=== PATIENT | female | born 1965 | race African-American/Black ===

== ENCOUNTER 2016-11-07 16:51 | Emergency (ER) | payer OTHER ==
[~2016-11-07] VITALS: Ht 170.2 cm; Wt 59.9 kg
[~2016-11-07 16:51] MED LIST: CLARITIN10 M2 ORAL; NEURONTIN400 MG ORAL
[2016-11-07 17:53] VITALS: BP 148/79
[2016-11-07] MEDS ORDERED: LORazepam 0.5mg tab ORAL ONE (18:15)
[2016-11-07] MEDS ORDERED: ATIVAN1 MG ORAL (19:16)
[2016-11-07 19:21] VITALS: BP 148/79
--- NOTE | 2016-11-07 22:29 | Emergency Room Report ---
History of Present Illness General Chief Complaint: Upper Respiratory Illness Source: Patient Present Illness HPI The pt is a 51 yo F with a Hx of anxiety disorder presenting for cough and mid chest pain. The pt states she developed a dry cough three days prior and then felt mid chest pain yesterday which occurs with cough. The patient denies any cardiac history. The pain is described as an 8/10 dull ache and only occurs with cough. The patient denies any radiating pain and denies SOB, N, V, F, chills Allergies: Coded Allergies: No Known Allergies (Unverified , 10/22/16) Patient History Past Medical History: see triage record Pertinent Family History: none Reviewed Nursing Documentation: PMH: Agreed, PSxH: Agreed Nursing Documentation-PMH Past Medical History: No History, Except For History Of Psychiatric Problem: Yes - anxiety Review of Systems All Other Systems: negative except mentioned in HPI Physical Exam Vital Signs Date Time Temp Pulse Resp B/P Pulse Ox O2 Delivery O2 Flow Rate FiO2 11/07/16 17:10 98.8 93 19 148/79 99 Room Air Sp02 EP Interpretation: reviewed, normal General Appearance: no apparent distress, alert, GCS 15, non-toxic Head: normocephalic, atraumatic Eyes: bilateral eye PERRL, bilateral eye normal inspection ENT: hearing grossly normal, normal pharynx, no angioedema, normal voice, TMs + canals normal, uvula midline, moist mucus membranes Neck: full range of motion, supple/symm/no masses Respiratory: chest non-tender, lungs clear, normal breath sounds, speaking full sentences Cardiovascular #1: regular rate, rhythm, no edema Gastrointestinal: normal bowel sounds, non tender, soft, non-distended, no guarding, no rebound Genitourinary: normal inspection, no CVA tenderness Musculoskeletal: back normal, gait/station normal, normal range of motion, non- tender Neurologic: alert, oriented x3, responsive, motor strength/tone normal, sensory intact, speech normal Psychiatric: memory normal, no suicidal/homicidal ideation, anxious Skin: normal color, no rash, warm/dry, well hydrated Medical Decision Making PA Attestation Dr. Medina is my supervising physician. Patient management was discussed with my supervising physician Diagnostic Impression: Primary Impression: Anxiety ER Course The pt is a 51 yo F with a Hx of anxiety disorder presenting for cough and mid chest pain. Differential diagnosis include but not limited to anxiety disorder, depression, pharyngitis, bronchitis, sinusitis, pneumonia, rhinitis PE: Pt appears anxious and begins to cry during exam. A&Ox3 PERRL. EOMI. RRR. No MRG Lungs CTA bilat Abdomen: Normal appearance. Non distended. No ecchymosis. Normal BS. Non TTP. No McBurney point tenderness. No guarding. Skin is warm and dry, no rashes. CXR unremarkable. Pt given tylenol for pain and ativan for anxiety. The pt will be DC'ed home. No signs of infection. Pt will be treated for anxiety and will FU with PMD/Psychiatrist. ER precautions. Chest X-Ray Diagnostic Results EP Interpretation: Yes Findings: no consolidation, no effusion, no pneumothorax Number of Views: 1 PA Scribe Text I am acting as scribe for my supervising physician. My supervising physician's interpretation of the chest xrays are there is no consolidation, no effusion, no acute cardiopulmonary disease, no pneumothorax Last Vital Signs Date Time Temp Pulse Resp B/P Pulse Ox O2 Delivery O2 Flow Rate FiO2 11/07/16 19:21 98.8 11/07/16 19:21 96 19 148/79 99 Room Air Status: improved Disposition: HOME, SELF-CARE Condition: Improved Scripts Lorazepam* (ATIVAN*) 1 Mg Tablet 1 MG ORAL DAILY, #10 TAB Prov: DEBRA FIGUEREDO 11/07/16 Patient Instructions: Panic Attacks Additional Instructions: I discussed my findings with the patient. All questions and concerns have been answered. Treatment and medication compliance have been addressed. I advised the patient that they need to follow up with PMD in 3-5 days. Return to ED if symptoms worsen, new symptoms arise, or if needed for any reason. Patient verbalized understanding of discharge instructions. The patient is advised to see primary care physician/psychiatrist DEBRA FIGUEREDO Nov 07, 2016 22:29
--- NOTE | 2016-11-13 10:30 | Diagnostic Imaging Report ---
Indication: Cough Comparison: None A single view chest radiograph was obtained. Findings: Cardiomediastinal appearance is within normal limits for age. Pulmonary vascularity is appropriate. The diaphragmatic contour is smooth and costophrenic angles are sharp. No pleural effusions are identified. The bones are unremarkable. Impression: No acute findings
== END 2016-11-07 19:22 | disposition home or self-care (01) ==
LOC: EMR 17:46
DX: F41.9 Anxiety disorder, unspecified (principal)
CPT/HCPCS: 71010; 99283

== ENCOUNTER 2017-11-27 11:36 | Emergency (ER) | payer MEDICAID, OTHER ==
[~2017-11-27] VITALS: Ht 170.2 cm; Wt 61.2 kg
[~2017-11-27 11:36] MED LIST changes: +ATIVAN1 MG ORAL
[2017-11-27 11:49] VITALS: BP 149/91
--- NOTE | 2017-11-27 12:17 | Emergency Room Report ---
History of Present Illness General Chief Complaint: Skin Rash/Abscess Source: Patient Present Illness HPI 52yo female presents to clinic complaining of 2 abscess on back of neck and behind right ear. Patient complains of TTP of abscess behind ear; states "bump keeps getting bigger". Patient reports using vicks vapor rub and lemograss on bump with no releif of symptoms. Patient denies use of other medications for relief of symptoms. Patient reports history of abscesses in the past, states she has appointment to see plastic surgeon for removal. Patient denies ear pain, ear discharge, loss of hearing. Patient denies fever, sob, chest pain, rash. Allergies: Coded Allergies: No Known Allergies (Unverified , 10/22/16) Patient History Past Medical History: see triage record Social History: Reports: alcohol use - social, Denies: smoking, drug use Last Menstrual Period: NA Immunizations: UTD Reviewed Nursing Documentation: PMH: Agreed, PSxH: Agreed Nursing Documentation-PMH Past Medical History: No History, Except For Review of Systems All Other Systems: negative except mentioned in HPI Physical Exam Vital Signs Date Time Temp Pulse Resp B/P (MAP) Pulse Ox O2 Delivery O2 Flow Rate FiO2 11/27/17 11:41 98.8 105 18 149/91 98 Room Air Sp02 EP Interpretation: reviewed, normal General Appearance: no apparent distress, alert, GCS 15, non-toxic Head: normocephalic, atraumatic Eyes: bilateral eye normal inspection, bilateral eye PERRL ENT: hearing grossly normal, normal pharynx, no angioedema, normal voice, TMs + canals normal, uvula midline, moist mucus membranes Neck: full range of motion, no bony tend Respiratory: chest non-tender, lungs clear, normal breath sounds, no respiratory distress, speaking full sentences Cardiovascular #1: regular rate, rhythm, no edema Musculoskeletal: back normal, gait/station normal, normal range of motion, non- tender Neurologic: alert, oriented x3, responsive, motor strength/tone normal, sensory intact, speech normal Psychiatric: mood/affect normal Skin: no rash, warm/dry, palpation normal, normal turgor, other - right post- auricular: <2cm fluctuant erythematous abscess, no pus, no bleeding, no drainage ; posterior neck: <1cm subcutaneous mobile nodule, no TTP, no erythema, no pus, no drainage Lymphatic: no adenopathy Procedures Incision and Drainage Incision and Drainage : Consent: Verbal Site: post mel Blade Size: 11 I & D Procedure: betadine prep, sterile drapes applied, sterile dressing applied Wound Location: head Wound's Depth, Shape: superficial Wound Explored: contaminated Anesthesia: 1% Lidocaine Volume Anesthetic (ccs): 2 Patient Tolerated: Well Complications: None Medical Decision Making PA Attestation Dr. Craig is my supervising Physician whom patient management has been discussed with. Diagnostic Impression: Primary Impression: Abscess ER Course Pt. presents to the ED c/o abscess Ddx considered but are not limited to rash, cellulitis, abscess, sebaceous cyst , carbuncle, folliculitis. Vital signs: are within acceptable range, pt. is afebrile ORDERS: none required at this time ED INTERVENTIONS: Field block of abscess performed with lidocaine. I&D of post-auricular abscess performed. Sterile dressing and Bacitracin applied to wound following procedure. DISCHARGE: -Rx provided for Keflex -Rx provided for Bactrim -Rx provided for Ibuprofen At this time pt. is stable for d/c to home. Discussed with patient no need to drain suspected abscess on neck at this time. Patient agreed. Patient agreed to treating with antibiotics at this time. Patient stated she would follow-up with PCP and plastic surgeon for further treatment. Will provide printed patient care instructions and any necessary prescriptions. Care plan and follow up instructions have been discussed with the patient prior to discharge. Patient instructed to follow-up with primary care provider in 2 - 3 days for wound recheck. Patient questions asked and answered. ER precautions given. Patient instructed to return to ER immediately for any new or worsening of symptoms including but not limited to fever, worsening of pain symptoms. Last Vital Signs Date Time Temp Pulse Resp B/P (MAP) Pulse Ox O2 Delivery O2 Flow Rate FiO2 11/27/17 11:49 98.8 101 18 149/91 96 Room Air Status: improved Disposition: HOME, SELF-CARE Condition: Stable Scripts Bacitracin/Polymyxin B Sulfate (BACITRACIN-POLYMYXIN OINTMENT) 28.35 Gm Oint...g. 1 APPLIC TP BID for 7 Days, GM Prov: Walter Sneed P.A. 11/27/17 Cephalexin* (KEFLEX*) 500 Mg Capsule 500 MG ORAL EVERY 12 HOURS for 7 Days, #14 CAP 0 Refills Prov: Walter Sneed 11/27/17 Trimethoprim/Sulfamethoxazole 160/800* (BACTRIM DS TABLET*) 1 Each Tablet 1 TAB ORAL TWICE A DAY for 7 Days, #14 TAB Prov: Walter Sneed 11/27/17 Patient Instructions: Abscess Additional Instructions: Followup with primary care provider in 2-3 days for wound check, discuss referral to derm and/or plastic surgery. Take medications as directed. Take antibiotics to completion. Patient questions asked and answered. ER precautions given, patient instructed to return to ER immediately for any new or worsening of symptoms. Walter Sneed Nov 27, 2017 12:17
[2017-11-27 12:35] VITALS: BP 140/88
[2017-11-27] MEDS ORDERED: CEPHALEXIN500 MG ORAL (12:38)
[2017-11-27] MEDS ORDERED: BACTRIM DS TAB1 EAC1 ORAL (12:38)
[2017-11-27] MEDS ORDERED: BACITRACIN-P28.35 GM TP (12:38)
[2017-11-27] MEDS ORDERED: Bacitracin Oint UD TOPIC ONE (12:42)
== END 2017-11-27 13:08 | disposition home or self-care (01) ==
LOC: EMR 12:14
DX: L02.11 Cutaneous abscess of neck (principal)
CPT/HCPCS: 10060; 99283

== ENCOUNTER 2019-01-13 05:21 | Emergency (ER) | payer MEDICAID, OTHER ==
[~2019-01-13] VITALS: Ht 170.2 cm; Wt 65.3 kg
[~2019-01-13 05:21] MED LIST changes: +BACITRACIN-P28.35 GM TP; +BACTRIM DS TAB1 EAC1 ORAL; +CEPHALEXIN500 MG ORAL
--- NOTE | 2019-01-13 05:42 | NUR ---
ED Nurse Note: Pt walked in ER and c/o R abdominal pain since last night. Pt is AO x 4times, VSS, on room air no distress. ERMD seen Pt at bedside.
[2019-01-13 05:44] VITALS: BP 124/82
--- NOTE | 2019-01-13 05:50 | Emergency Room Report ---
History of Present Illness General Chief Complaint: Abdominal Pain Source: Patient (Vince Bonner MD) Present Illness HPI This is a 53-year-old female with no past medical history. She presents with chief complaint of abdominal pain. Onset 2 days ago. Pain localized to the right lower quadrant. Sharp in nature. No radiation. No fever chills but no trauma. No urinary complaint. No nausea no vomiting or diarrhea. Eating normally. Worse with palpation and movement. Better with rest. No previous abdominal surgery. (Vince Bonner MD) Allergies: Coded Allergies: No Known Allergies (Unverified , 01/13/19) Patient History Past Medical History: see triage record, old chart reviewed Past Surgical History: none Pertinent Family History: none Social History: Denies: drug use Now: No Immunizations: other Reviewed Nursing Documentation: PMH: Agreed; PSxH: Agreed (Vince Bonner MD) Nursing Documentation-PMH Hx Cardiac Problems: No (Vince Bonner MD) Review of Systems Eye: Denies: eye pain, blurred vision ENT: Denies: ear pain, nose congestion, throat swelling Respiratory: Denies: cough, shortness of breath Cardiovascular: Denies: chest pain, palpitations Gastrointestinal: Reports: abdominal pain; Denies: diarrhea, nausea, vomiting Musculoskeletal: Denies: back pain, joint pain Skin: Denies: rash Neurological: Denies: headache, numbness Endocrine: Denies: increased thirst, increased urine Hematologic/Lymphatic: Denies: easy bruising All Other Systems: negative except mentioned in HPI (Vicne Bonner MD) Physical Exam Vital Signs Date Time Temp Pulse Resp B/P (MAP) Pulse Ox O2 Delivery O2 Flow Rate FiO2 01/13/19 05:26 98.1 95 14 118/79 95 Room Air vitals mica Sp02 EP Interpretation: reviewed, normal General Appearance: well appearing, no apparent distress, alert Head: normocephalic, atraumatic Eyes: bilateral eye PERRL, bilateral eye EOMI ENT: hearing grossly normal, normal pharynx Neck: full range of motion, supple, no meningismus Respiratory: chest non-tender, lungs clear, normal breath sounds Cardiovascular #1: regular rate, rhythm, no murmur Gastrointestinal: normal bowel sounds, no mass, no organomegaly, no bruit, non- distended, tenderness - Right lower quadrant Musculoskeletal: back normal, gait/station normal, normal range of motion Neurologic: alert, oriented x3 Psychiatric: mood/affect normal Skin: warm/dry (Vince Bonner MD) Medical Decision Making Diagnostic Impression: Primary Impression: Abdominal pain Qualified Codes: R10.31 - Right lower quadrant pain Additional Impression: Colitis ER Course Sent with abdominal pain. Labs and CT scan pending. I will sign this patient out to Dr. Medina for the final disposition. (Vince Bonner MD) ER Course Patient was endorsed to me by Dr. Bonner.See Dr. Bonner's note for full HPI. Patient was noted to have right sided abdominal pain. CT imaging was pending at the time of transfer of care. Patient was noted to have unremarkable laboratory testing. A CT imaging read by radiology showed no secondary signs of acute appendicitis. Patient was noted to have some ascending and transverse colon findings suggesting infectious or inflammatory colitis. Nonobstructing left renal stone. Patient will be discharged home with prescription for Flagyl as well as medications for symptomatic treatment. Patient was advised to follow -up with primary care for GI referral. Labs Test 01/13/19 05:40 01/13/19 06:00 Urine Color Yellow Urine Appearance Clear Urine pH 5 (4.5-8.0) Urine Specific [place] 1.025 (1.005-1.035) Urine Protein 1+ (NEGATIVE) Urine Glucose (UA) Negative (NEGATIVE) Urine Ketones Negative (NEGATIVE) Urine Blood 5+ (NEGATIVE) Urine Nitrite Negative (NEGATIVE) Urine Bilirubin Negative (NEGATIVE) Urine Urobilinogen 1 MG/DL (0.0-1.0) Urine Leukocyte Esterase 1+ (NEGATIVE) Urine RBC 10-15 /HPF (0 - 2) Urine WBC 2-4 /HPF (0 - 2) Urine Squamous Epithelial Cells Few /LPF (NONE/OCC) Urine Bacteria Few /HPF (NONE) Urine Mucus Moderate /LPF (NONE/OCC) White Blood Count 11.0 K/UL (4.8-10.8) Red Blood Count 4.49 M/UL (4.20-5.40) Hemoglobin 12.6 G/DL (12.0-16.0) Hematocrit 39.7 % (37.0-47.0) Mean Corpuscular Volume 88 FL (80-99) Mean Corpuscular Hemoglobin 28.1 PG (27.0-31.0) Mean Corpuscular Hemoglobin Concent 31.8 G/DL (32.0-36.0) Red Cell Distribution Width 12.3 % (11.6-14.8) Platelet Count 262 K/UL (150-450) Mean Platelet Volume 6.5 FL (6.5-10.1) Neutrophils (%) (Auto) 68.6 % (45.0-75.0) Lymphocytes (%) (Auto) 22.0 % (20.0-45.0) Monocytes (%) (Auto) 7.8 % (1.0-10.0) Eosinophils (%) (Auto) 0.7 % (0.0-3.0) Basophils (%) (Auto) 1.0 % (0.0-2.0) Sodium Level 139 MMOL/L (136-145) Potassium Level 4.2 MMOL/L (3.5-5.1) Chloride Level 102 MMOL/L (98-107) Carbon Dioxide Level 29 MMOL/L (21-32) Anion Gap 8 mmol/L (5-15) Blood Urea Nitrogen 13 mg/dL (7-18) Creatinine 0.9 MG/DL (0.55-1.30) Estimat Glomerular Filtration Rate > 60 mL/min (>60) Glucose Level 78 MG/DL (74-106) Calcium Level 8.7 MG/DL (8.5-10.1) Total Bilirubin 0.4 MG/DL (0.2-1.0) Aspartate Amino Transf (AST/SGOT) 21 U/L (15-37) Alanine Aminotransferase (ALT/SGPT) 32 U/L (12-78) Alkaline Phosphatase 106 U/L (46-116) Total Protein 7.1 G/DL (6.4-8.2) Albumin 3.6 G/DL (3.4-5.0) Globulin 3.5 g/dL Albumin/Globulin Ratio 1.0 (1.0-2.7) Lipase 201 U/L (73-393) (Stepan Medina MD) Last Vital Signs Date Time Temp Pulse Resp B/P (MAP) Pulse Ox O2 Delivery O2 Flow Rate FiO2 01/13/19 05:44 98.5 86 16 124/82 97 Room Air Status: improved (Vince Bonner MD) Status: improved (Stepan Medina MD) Disposition: HOME, SELF-CARE Condition: Stable Scripts Dicyclomine Hcl* (DICYCLOMINE HCL*) 10 Mg Capsule 10 MG PO QID for abdominal solomon, #120 CAP Prov: Stepan Medina MD 01/13/19 Lactulose (LACTULOSE*) 20 Gm/30 Ml Solution 15 ML ORAL DAILY for constipation, #120 ML 0 Refills Prov: Stepan Medina MD 01/13/19 Metronidazole* (FLAGYL*) 500 Mg Tablet 500 MG ORAL BID, #14 TAB Prov: Stepan Medina MD 01/13/19 Referrals: NOT CHOSEN IPA/,REFERRING (PCP) Vince Bonner MD Jan 13, 2019 05:50 Stepan Medina MD Jan 13, 2019 07:17
[2019-01-13 05:54] LABS: APPEARANCE,URINE CLEAR; BILIRUBIN, URINE NEGATIVE (NEGATIVE); GLUCOSE, URINE (UA) NEGATIVE (NEGATIVE); KETONES,URINE NEGATIVE (NEGATIVE); LEUKOCYTE ESTERASE ,URINE 1+ (NEGATIVE); NITRITE,URINE NEGATIVE (NEGATIVE); PH,URINE 5 (4.5-8.0); PROTEIN,URINE 1+ (NEGATIVE); UROBILINOGEN,URINE 1 MG/DL (0.0-1.0)
[2019-01-13] MEDS ORDERED: Ketorolac 30mg Inj IV ONE (06:00)
--- NOTE | 2019-01-13 06:00 | NUR ---
ED Nurse Note: Urine and blood sample sent to lab.
--- NOTE | 2019-01-13 06:05 | NUR ---
ED Nurse Note: Pt went to CT scan.
[2019-01-13 06:08] LABS: COLOR,URINE YELLOW
[2019-01-13 06:17] LABS: EOSINOPHILS % (AUTO) 0.7 % (0.0-3.0); HEMATOCRIT 39.7 % (37.0-47.0); HEMOGLOBIN 12.6 G/DL (12.0-16.0); MEAN CORPUSCULAR VOLUME 88 FL (80-99); MONOCYTES % (AUTO) 7.8 % (1.0-10.0); NEUTROPHILS % (AUTO) 68.6 % (45.0-75.0); PLATELET COUNT 262 K/UL (150-450); RED BLOOD COUNT 4.49 M/UL (4.20-5.40); RED CELL DISTRIBUTION WIDTH 12.3 % (11.6-14.8)
[2019-01-13 06:30] LABS: ANION GAP 8 mmol/L (5-15); BLOOD UREA NITROGEN 13 mg/dL (7-18); CALCIUM 8.7 MG/DL (8.5-10.1); CARBON DIOXIDE 29 MMOL/L (21-32); CHLORIDE 102 MMOL/L (98-107); CREATININE 0.9 MG/DL (0.55-1.30); POTASSIUM 4.2 MMOL/L (3.5-5.1); SODIUM 139 MMOL/L (136-145)
[2019-01-13 06:35] LABS: ALANINE AMINOTRANSFERASE 32 U/L (12-78); ALBUMIN 3.6 G/DL (3.4-5.0); ALKALINE PHOSPHATASE 106 U/L (46-116); ASPARTATE AMINO TRANSFERASE 21 U/L (15-37); BILIRUBIN,TOTAL 0.4 MG/DL (0.2-1.0)
[2019-01-13] MEDS ORDERED: Morphine Sulfate 4mg/ml Inj (IV USE ONLY) IVP ONE (06:45)
--- NOTE | 2019-01-13 06:55 | Diagnostic Imaging Report ---
EXAM: CT Abdomen and Pelvis Without Intravenous Contrast CLINICAL HISTORY: ABD PAIN TECHNIQUE: Axial computed tomography images of the abdomen and pelvis without intravenous contrast. CTDI is 13 mGy and DLP is 575 mGy-cm. One or more of the following dose reduction techniques were used: automated exposure control, adjustment of the mA and/or kV according to patient size, use of iterative reconstruction technique. Coronal and sagittal reformatted images were created and reviewed. COMPARISON: No relevant prior studies available. FINDINGS: Lung bases: Unremarkable. No mass. No consolidation. ABDOMEN: Liver: Unremarkable. Gallbladder and bile ducts: Unremarkable. No calcified stones. No ductal dilation. Pancreas: Unremarkable. No ductal dilation. Spleen: Unremarkable. No splenomegaly. Adrenals: Unremarkable. No mass. Kidneys and ureters: 0.3 cm nonobstructing left nephrolith. Stomach and bowel: Mildly prominent circumferential gastric wall could be incidental and due to nondistention, or could represent gastritis in the proper context. Large colonic stool burden in the descending colon. Circumferential ascending colon and transverse colon wall PELVIS: Appendix: thickening. Appendix not definitively identified, no secondary signs of acute appendicitis seen. Bladder: Unremarkable. No stones. Reproductive: Unremarkable as visualized. ABDOMEN and PELVIS: Intraperitoneal space: Unremarkable. No free air. No significant fluid collection. Bones/joints: No acute fracture. No dislocation. Soft tissues: Unremarkable. Vasculature: Unremarkable. No abdominal aortic aneurysm. Lymph nodes: Unremarkable. No enlarged lymph nodes. Other findings: Scattered ASVD. IMPRESSION: 1. Ascending colon and transverse colon findings suggesting infectious or inflammatory colitis, correlate with clinical presentation. Recommend endoscopy or repeating study after acute phase of illness has resolved to exclude neoplastic processes. 2. No findings of acute appendicitis. 3. Mildly prominent circumferential gastric wall could be incidental and due to nondistention, or could represent gastritis in the proper context. 4. If there is further concern, recommend repeating study with oral and intravenous contrast for more sensitive evaluation. 5. Nonobstructing left nephrolithiasis.
--- NOTE | 2019-01-13 07:09 | NUR ---
HAND-OFF: Report given to Lor BREWER.
[2019-01-13] MEDS ORDERED: LACTULOSE20 GM/301 ORAL (07:19)
[2019-01-13] MEDS ORDERED: DICYCLOMINE HCL10 MG PO (07:19)
[2019-01-13] MEDS ORDERED: METRONIDAZOLE500 MG ORAL (07:19)
[2019-01-13 07:46] VITALS: BP 124/82
--- NOTE | 2019-01-13 07:47 | NUR ---
ER DISCHARGE NOTE: Patient is cleared to be discharged per ERMD, pt is aox4, on room air, with stable vital signs. pt was given dc and prescription instructions, pt was able to verbalize understanding, pt id band and iv site removed without complications. pt is able to ambulate with steady gait. pt took all belongings.
== END 2019-01-13 07:47 | disposition home or self-care (01) ==
LOC: EMR 05:41
DX: K52.9 Noninfective gastroenteritis and colitis, unspecified (principal); R10.31 Right lower quadrant pain
CPT/HCPCS: 36415; 74176; 80053; 81003; 83690; 85025; 96361; 96374; 96375; 99284; J1885; J2270; J2405